=== PATIENT | male | born 1980 | race Caucasian/White ===

== ENCOUNTER 2017-01-26 13:10 | Emergency (ER) | payer OTHER ==
[~2017-01-26] VITALS: Ht 167.6 cm; Wt 83.3 kg
[2017-01-26 13:16] VITALS: TEMP 36.8; Ht 167.6 cm; Wt 83.3 kg
[2017-01-26] MEDS ORDERED: MoRPHine SULFATE 4 MG/ML 1 ML CARP\\VIAL IV STA (13:41)
[2017-01-26] MEDS ORDERED: XYLOCAINE 1%/SOD BICARB 20 ML VIAL INFIL ONE (13:45)
--- NOTE | 2017-01-26 14:05 | EMERGENCY ROOM VISIT NOTE ---
History First contact with patient: 13:25 Chief Complaint: OTHER COMPLAINT Stated Complaint: RT ARM NUMB AND BITES ON LEFT ARM History of Present Illness The patient is a 36 year old male who presents to the Emergency Room with complaints of right arm numbness and tingling that started approximately 2 weeks ago. He reports pain and numbness are constant, but have gotten worse over the last few days, and states they are also worse at night, keeping him awake. He does report some pain in his neck as well. He denies any injury to the neck or arm. 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 He does report a history of a C7 fracture in 2002 from a fall, no neck surgery or hardware, and states his chronic neck pain from this. He has not taken any medications for pain, he states he has been using beer to manage his symptoms. Patient also complains of 3 small abscesses on his left arm that started approximately 3 days ago. He does state that he has been squeezing them and cutting them open with his pocket knife and has noted pus drainage, however they have not resolved. He denies any history of previous abscess, MRSA infection, or IVDA. Patient denies any headaches, vision changes , nausea or vomiting, fevers or chills, chest pain, shortness of breath, abdominal pain, changes in stool habits, dysuria or urinary frequency, rash. Review of Systems A complete 10 point review of systems was reviewed with the patient with pertinent positives and negatives as per history of present illness. All else were negative. Social History Smoking Status: Current Every Day Smoker Alcohol Use: occasionally Drug Use: marijuana Marital Status: single Current/Historical Medications Scheduled Cephalexin Monohydrate (Keflex), 500 MG PO QID Methylprednisolone (Medrol Dosepak), 0 PO DAILY Sulfa/Trimethoprim (Bactrim Ds 800MG/160MG), 1 TAB PO BID Scheduled PRN Hydrocodone/Acetaminophen 5MG/325MG (Belk 5MG/325MG), 1-2 TABLET PO Q6 PRN for Pain Physical Exam Vital Signs Date Time Temp Pulse Resp B/P (MAP) Pulse Ox O2 Delivery O2 Flow Rate FiO2 01/26/17 15:24 61 18 135/92 98 Room Air 01/26/17 13:16 36.8 75 20 130/71 96 Room Air Physical Exam CONSTITUTIONAL: No acute distress. Well appearing and well nourished. Alert and oriented X 4 with normal affect. HEENT: Normocephalic, atraumatic. Pupils equal, round and reactive to light, EOMI. TMs normal. Pharynx normal. NECK: Supple, full active range of motion without discomfort. RESPIRATORY: Clear to auscultation bilaterally with no wheezing, crackles, rhonchi or stridor. Equal expansion bilaterally. CARDIOVASCULAR: Regular rate and rhythm with no murmurs, rubs or gallops. Normal peripheral perfusion. No edema. GASTROINTESTINAL: Soft, nontender, nondistended. Bowel sounds present in all quadrants. MUSCULOSKELETAL: Patient reports subjective numbness/tingling extending from shoulder to the fingertips fingers 2, 3, 4. Sensation is decreased, no sharp/ dull differentiation in this distribution. There is full muscle strength of right arm and forearm, normal and chief of pediatric urology strength. Full range of motion of all other joints without discomfort. INTEGUMENTARY: There are three small abscesses clustered on the left lateral upper arm just above the elbow, erythematous and indurated, with central fluctuance, tender to palpation, no drainage noted. No rash or other significant dermatologic conditions noted. NEUROLOGIC: Cranial nerves II-XII grossly intact. No focal neurologic deficits noted. Medical Decision & Procedures ER Provider Diagnostic Interpretation: CT SCAN OF THE CERVICAL SPINE CLINICAL HISTORY: Neck pain. Right arm tingling. COMPARISON STUDY: No priors. TECHNIQUE: CT scan of the cervical spine is performed from the skull base to the upper thoracic spine. Images are reviewed in the axial, sagittal, and coronal planes. IV contrast was not administered for this examination. A dose lowering technique was utilized adhering to the principles of ALARA. CT DOSE: 282.18 mGy.cm FINDINGS: Skeletal structures: The skeletal structures are well mineralized. There is no evidence of fracture or subluxation involving the cervical spine. Vertebral body height and alignment are maintained. There is straightening of the cervical lordosis with minimal reversal centered at C4-C5. The odontoid process and lateral masses are intact. The atlantoaxial articulation is preserved. The spinous processes appear intact. Large anterior osteophytes are seen from C3 through C6. A hemangioma is noted in the body of C5. Neural foraminal stenosis is suggested in the right at C7-T1. Only minimal facet arthropathy is seen at the remaining cervical levels. Intervertebral discs: The disc spaces are maintained. Central canal: Small posterior disc osteophyte complexes at C3-C4, C4-C5, C5-C6 may contribute to mild acquired compromise of the central canal. Soft tissues: The prevertebral and paraspinous soft tissues are within normal limits. Calvarium: The visualized calvarium at the skull base appears intact. Brain parenchyma: Partially visualized brain parenchyma the skull base is within normal limits. Sinuses and mastoids: The visualized paranasal sinuses are clear. The mastoid air cells are well pneumatized. Lung apices: Clear as visualized. IMPRESSION: 1. There is no evidence of fracture or subluxation involving the cervical spine. 2. Mild spondylotic change as above. Laboratory Results 01/26/17 13:55 Red Blood Count 4.36, Mean Corpuscular Volume 97.0, Mean Corpuscular Hemoglobin 34.6, Mean Corpuscular Hemoglobin Concent 35.7, Mean Platelet Volume 9.3, Neutrophils (%) (Auto) 66.9, Lymphocytes (%) (Auto) 21.7, Monocytes (%) (Auto) 9.5, Eosinophils (%) (Auto) 1.6, Basophils (%) (Auto) 0.2, Neutrophils # (Auto) 7.18, Lymphocytes # (Auto) 2.33, Monocytes # (Auto) 1.02, Eosinophils # (Auto) 0.17, Basophils # (Auto) 0.02 01/26/17 13:55 Test 01/26/17 13:55 White Blood Count 10.73 K/uL (4.8-10.8) Red Blood Count 4.36 M/uL (4.7-6.1) Hemoglobin 15.1 g/dL (14.0-18.0) Hematocrit 42.3 % (42-52) Mean Corpuscular Volume 97.0 fL (80-100) Mean Corpuscular Hemoglobin 34.6 pg (25-34) Mean Corpuscular Hemoglobin Concent 35.7 g/dl (32-36) Platelet Count 297 K/uL (130-400) Mean Platelet Volume 9.3 fL (7.4-10.4) Neutrophils (%) (Auto) 66.9 % Lymphocytes (%) (Auto) 21.7 % Monocytes (%) (Auto) 9.5 % Eosinophils (%) (Auto) 1.6 % Basophils (%) (Auto) 0.2 % Neutrophils # (Auto) 7.18 K/uL (1.4-6.5) Lymphocytes # (Auto) 2.33 K/uL (1.2-3.4) Monocytes # (Auto) 1.02 K/uL (0.11-0.59) Eosinophils # (Auto) 0.17 K/uL (0-0.5) Basophils # (Auto) 0.02 K/uL (0-0.2) RDW Standard Deviation 47.7 fL (36.4-46.3) RDW Coefficient of Variation 13.4 % (11.5-14.5) Immature Granulocyte % (Auto) 0.1 % Immature Granulocyte # (Auto) 0.01 K/uL (0.00-0.02) Anion Gap 6.0 mmol/L (3-11) Est Creatinine Clear Calc Drug Dose 104.5 ml/min Estimated GFR () 113.7 Estimated GFR (Non- 98.1 BUN/Creatinine Ratio 13.4 (10-20) Calcium Level 9.1 mg/dl (8.5-10.1) Medications Administered Medications (Trade) Dose Ordered Sig/Lacey Route Start Time Stop Time Status Last Admin Dose Admin Morphine Sulfate (MoRPHine SULFATE INJ) 4 mg NOW STAT IV 01/26/17 13:41 01/26/17 13:45 DC 01/26/17 13:54 4 MG Lidocaine HCl (Buffered Lidocaine 1% Inj) 20 ml NOW ONCE INFIL 01/26/17 13:45 01/26/17 13:46 DC 01/26/17 13:54 20 ML Cephalexin Monohydrate (Keflex Cap) 500 mg NOW ONCE PO 01/26/17 15:15 01/26/17 15:16 DC 01/26/17 15:23 500 MG Trimethoprim/ Sulfamethoxazole (Septra Ds 800/ 160MG Tab) 1 tab NOW STAT PO 01/26/17 15:13 01/26/17 15:14 DC 01/26/17 15:22 1 TAB Procedure Incision and drainage: I examined the patient. Verbal consent was obtained to perform the procedure. After saline and Betadine cleansing and 2 mL of 1% buffered lidocaine anesthesia , the three abscesses were incised with a number 11 scalpel blade. A moderate amount of purulent material was released with more expressed by pressure. A swab was obtained for culture. The 2 larger abscess cavities were further probed with a needle emergency detail driver and the deep pocket expressed. The abscess cavities were then copiously irrigated with sterile saline under pressure. The 2 larger abscesses were then packed with bacitracin soaked packing. The area was cleaned with sterile saline and dressed with bacitracin and a bulky bandage. The patient tolerated the procedure well. Medical Decision CC: Patient presenting with complaint of right arm numbness/tingling, left arm abscesses Interpretation of Labs: No leukocytosis, no anemia, no significant electrolyte abnormalities, normal renal function. Wound culture sent and pending. Differential Diagnosis: Includes, but not limited to cervical radiculopathy, disc herniation, cervical fracture, spinal stenosis, abscess, cellulitis, MRSA, among others. Medication Reconciliation: I attest that I have personally reviewed the patient' s current medication list. Vital signs review: I reviewed the patient's vital signs and interpret them as follows: T: Afebrile; BP: Normotensive; HR: Within normal limits; RR: Within normal limits; Pulse Ox: Within normal limits on room air. Blood pressure screening: The patient was found to have normal blood pressure on screening and does not require follow-up for repeat blood pressure check. Summary: Patient was evaluated at bedside, history of physical exam performed. Patient is alert, no acute distress, sitting comfortably in the stretcher. Musculoskeletal and neurologic exam of the right arm as above. No discernible weakness of the right arm and minimal sensory deficit on exam. There is mild midline tenderness of the lower cervical spine to palpation, no significant pain with range of motion of the neck. Orders were placed at bedside for basic labs, CT of the cervical spine to evaluate for disc herniation, cervical stenosis. Patient discussed with Dr. Frank, who agrees with my assessment and plan. Labs reviewed as above, unremarkable. CT imaging reviewed, shows neural foraminal stenosis on the right at C7-T1, which is most likely contributing to patient's symptoms. Incision and drainage of the left arm abscess performed, see procedure note. Given multiple abscesses and moderate purulent drainage, will cover for potential MRSA, first dose of antibiotics given in ED. Patient reassessed multiple times throughout ED stay, he reports some improvement in pain. Patient updated on all results and plan for discharge home. Patient was instructed to follow up with orthopedic case specialist regarding his radiculopathy and was provided with referral contact information. Medrol Dosepak was also prescribed to help manage patient's radiculopathy. Patient states he has no PCP, corrections caseworker provided patient with information to be established. Patient was instructed on return precautions should his symptoms worsen in any way, he verbalized understanding. Patient was discharged home in stable condition and ambulatory. Impression Primary Impression: Cervical radiculopathy Additional Impression: Abscess of left arm Departure Information Dispostion Home / Self-Care Condition GOOD Prescriptions Sulfa/Trimethoprim (Bactrim Ds 800MG/160MG) Tab 1 TAB PO BID for 10 Days, #20 TAB Prov: DaniloKhadraRosalba Betzaida, FINISHING RANGE FEEDER 01/26/17 Cephalexin Monohydrate (KEFLEX) 500 Mg Cap 500 MG PO QID for 10 Days, #40 CAP Prov: DaniloKhadra arciniegaah Shannan., FINISHING RANGE FEEDER 01/26/17 Hydrocodone/Acetaminophen 5MG/325MG (Belk 5MG/325MG) Tab 1-2 TABLET PO Q6 Y for Pain for 3 Days, #24 TAB For Initial Treatment Prov: Rosalba Carrasco, FINISHING RANGE FEEDER 01/26/17 Methylprednisolone (MEDROL DOSEPAK) 4 Mg Vlad 0 PO DAILY, #1 PKT Prov: DaniloKhadraRosalba Betzaida, FINISHING RANGE FEEDER 01/26/17 Referrals No Doctor, Assigned (PCP) Bryan Lewis, DO Patient Instructions ED Abscess IandD, ED Cervical Radiculopathy, Formerly [facility], [facility] Additional Instructions The CT scan of your neck shows mild degenerative changes. You need to follow up with orthopedic spine surgeon for further evaluation of your neck pain and arm tingling. You may need additional imaging like an MRI, or physical therapy to further manage her symptoms. Call Dr. Lewis's office to schedule an appointment for follow-up. It is NOT recommended that you see a chiropractor until you have been cleared by the spine surgeon. Take the Medrol Dosepak as prescribed. This is to help reduce inflammation that may be causing your symptoms of a pinched nerve. You have been prescribed Belk to be used for pain control. This is a narcotic medication. You cannot drive, operate machinery, or consume alcohol while on this medicine. This medicine should only be used for pain that cannot be controlled with [id number] pain medicines like Tylenol or ibuprofen. You also had an Incision and Drainage of the abscess on your left arm. You were prescribed Keflex and Bactrim to be taken for 10 days. Both of these medications are antibiotics. Stop these medications and contact a medical provider if you were to develop any significant adverse side effects including: wheezing, shortness of breath, passing out, vomiting, or a diffuse rash. Always take antibiotics as directed and COMPLETE the ENTIRE course regardless of the improvement of your symptoms. Keep the dressing clean and dry. You should remove the packing in 48 hours. This packing is NOT dissolvable and WILL need to be removed. Proper wound care is essential for adequate wound healing and infection prevention. You can shower and clean the wound with soap and water. Do not scour over the wound. Pat dry with a towel. Do not submerse the wound (i.e. bathe or dish wash) until the skin has fully closed. You can use an antibiotic ointment with a dressing over the wound for the next 3-4 days. After this time you may leave the wound dry and open to the air. If crust develops over the wound you can use a Q-tip to apply a 1:1 peroxide:water solution to clean the wound. Look for signs of infection of the wound including: increased pain, swelling, foul discharge, streaking, or increased temperature. If any of these are noticed you should return to the Emergency Department for further assessment and treatment. As with any laceration you may have received nerve damage to the surrounding tissues. This damage may or may not be permanent. Return to the emergency department if your symptoms worsen despite treatment course outlined above. Problem Qualifiers
[2017-01-26 14:08] LABS: BASO % 0.2 %; BASO ABS # 0.02 K/uL (0-0.2); COMPLETE YES; EOS % 1.6 %; HEMATOCRIT 42.3 % (42-52); IG% 0.1 %; LYMPH % 21.7 %; LYMPH ABS # 2.33 K/uL (1.2-3.4); MEAN CORPUSCULAR HEMOGLOBIN 34.6 pg (25-34); MEAN CORPUSCULAR HGB CONC 35.7 g/dl (32-36); MEAN PLATELET VOLUME 9.3 fL (7.4-10.4); MONO % 9.5 %; NEUT % 66.9 %; PLATELET COUNT 297 K/uL (130-400); RED BLOOD COUNT 4.36 M/uL (4.7-6.1); WHITE BLOOD COUNT 10.73 K/uL (4.8-10.8)
--- NOTE | 2017-01-26 14:18 | DIAGNOSTIC IMAGING REPORT ---
CT SCAN OF THE CERVICAL SPINE CLINICAL HISTORY: Neck pain. Right arm tingling. COMPARISON STUDY: No priors. TECHNIQUE: CT scan of the cervical spine is performed from the skull base to the upper thoracic spine. Images are reviewed in the axial, sagittal, and coronal planes. IV contrast was not administered for this examination. A dose lowering technique was utilized adhering to the principles of ALARA. CT DOSE: 282.18 mGy.cm FINDINGS: Skeletal structures: The skeletal structures are well mineralized. There is no evidence of fracture or subluxation involving the cervical spine. Vertebral body height and alignment are maintained. There is straightening of the cervical lordosis with minimal reversal centered at C4-C5. The odontoid process and lateral masses are intact. The atlantoaxial articulation is preserved. The spinous processes appear intact. Large anterior osteophytes are seen from C3 through C6. A hemangioma is noted in the body of C5. Neural foraminal stenosis is suggested in the right at C7-T1. Only minimal facet arthropathy is seen at the remaining cervical levels. Intervertebral discs: The disc spaces are maintained. Central canal: Small posterior disc osteophyte complexes at C3-C4, C4-C5, C5-C6 may contribute to mild acquired compromise of the central canal. Soft tissues: The prevertebral and paraspinous soft tissues are within normal limits. Calvarium: The visualized calvarium at the skull base appears intact. Brain parenchyma: Partially visualized brain parenchyma the skull base is within normal limits. Sinuses and mastoids: The visualized paranasal sinuses are clear. The mastoid air cells are well pneumatized. Lung apices: Clear as visualized. IMPRESSION: 1. There is no evidence of fracture or subluxation involving the cervical spine. 2. Mild spondylotic change as above. Electronically signed by: Alex Ny M.D. 01/26/2017 2:17 PM Dictated Date/Time: 01/26/2017 2:15 PM
[2017-01-26 14:24] LABS: BUN/CREATININE RATIO 13.4 (10-20); CALCIUM 9.1 mg/dl (8.5-10.1); CREATININE 0.98 mg/dl (0.60-1.40); POTASSIUM 4.1 mmol/L (3.5-5.1)
[2017-01-26] MEDS ORDERED: SULFAMETHOXAZOLE/TRIMETHOPRIM DS 800/160MG TAB PO STA (15:13)
[2017-01-26] MEDS ORDERED: CEPHALEXIN MONOHYDRATE 250 MG CAP PO ONE (15:15)
[2017-01-26] MEDS ORDERED: METH4PAK PO (15:19)
[2017-01-26] MEDS ORDERED: CEPH500C2 PO (15:19)
[2017-01-26] MEDS ORDERED: SULF800T23 PO (15:19)
[2017-01-26] MEDS ORDERED: HYDR-5688 PO (15:19)
[2017-01-26 15:24] VITALS: BP 135/92; PULSE 61; O2SAT 98
== END 2017-01-26 15:35 | disposition home or self-care (01) ==
LOC: C.EDB 13:19
DX: L03.114 Cellulitis of left upper limb (principal); M54.12 Radiculopathy, cervical region; F17.200 Nicotine dependence, unspecified, uncomplicated